=== PATIENT | male | born 1995 | race Caucasian/White ===

== ENCOUNTER 2018-11-21 14:10 | Emergency (ER) | payer OTHER ==
--- NOTE | 2018-11-21 15:59 | EDPHY ---
HPI/HX/ROS/PE/MDM Narrative: CHIEF COMPLAINT: Fever, sore throat, neck pain HISTORY OF PRESENT ILLNESS: The patient is a 23 y/o male complaining of a fever, sore throat, and an intermittent headache. Starting last night he developed a mild sore throat. Sore throat was worse this am, with increased pain on right side. Has fullness and swelling along right side of neck, some discomfort with swallowing. No breathing difficulty. He also had a subjective fever, but did take a temperature reading. He took elderberry for his symptoms, but denies taking Tylenol or Ibuprofen. As his symptoms did not improve he decided to present to the emergency department. No ill contacts, no influenza vaccination this year. No chest pain, shortness of breath, palpitations, vomiting, diarrhea, urinary complaints, lightheadedness. REVIEW OF SYSTEMS: Aside from elements discussed in the HPI, a comprehensive 10-point review of systems was reviewed and is negative. PAST MEDICAL HISTORY: Denies SOCIAL HISTORY: Friend at bedside, lives in [place], student at , originally from [facility] VITAL SIGNS: Reviewed by me GENERAL: Well-developed, well-nourished, resting comfortably in no respiratory distress. No drooling. HEENT: Atraumatic. Eyes: No icterus, no injection. PERRL. Mouth: moist mucous membranes. Right tonsillar swelling and erythema with mild exudates, no submental swelling. No airway compromise, tonsils not touching. Neck: firm swelling and fullness of the right neck from post-auricular area and down the lateral aspect till about mid neck. No fluctuance. Neck is supple, no meningismus. LUNGS: Clear to auscultation bilaterally, no wheezes, rhonchi or rales. CARDIAC: Regular rate and rhythm, no rubs, murmurs or gallops. ABDOMEN: Soft, nontender, nondistended, bowel sounds normal. BACK: No CVA tenderness. EXTREMITIES: No trauma. No edema. Range of motion is normal throughout. NEURO: Alert and oriented, grossly nonfocal. SKIN: Warm and dry, no rash. PSYCHIATRIC: Normal mentation, no agitation. Portions of this note were transcribed by a medical massage therapist. I personally performed a history, physical exam, medical decision making, and confirmed accuracy of information the transcribed note. ED Course: The patient is a 23 y/o male presenting with a worsening sore throat, low grade fever and an intermittent headache. On exam he has right tonsillar swelling and erythema with mild exudates, as well as firm swelling and fullness of the right side of his neck from post auricular area to mid neck. Labs and CT soft tissue neck with IV contrast ordered; 1gm PO Tylenol, 600mg PO Motrin, and 1L IV NS administered. 1758: I spoke with the radiologist who reports that the patient has a right parapharyngeal phlegmon measuring 20 x 12 x 30. There are no signs of an abscess. 1814: I consulted with Dr. Casper, ENT, regarding this patient. She will see him in the office on Friday. I have prescribed him Augmentin and he will receive a dose of Unasyn prior to discharge. 1815: Reassessed patient and discussed imaging and laboratory findings. He is comfortable with plan for prescriptions and follow up. Return precautions provided; patient is comfortable with this plan. MDM: Diff dx considered included but not limited to abscess, airway compromise, strep throat, tonsillitis, tonsillar abscess, pharyngitis. - Data Points Imaging Results: Neck CT 11/21/18 17:15 Impression: 1. Heterogeneous enhancement pattern right palatine tonsil region right parapharyngeal location possible underlying phlegmon but no definitive abscess. 2. Reactive lymph nodes within the mid to upper neck right side greater than left. Findings discussed with Deanne Hartman MD at 17:59 hour, 11/21/2018. Imaging: Discussed imaging studies w/ train caller Radiologist, I viewed and interpreted images myself Laboratory Results: Laboratory Results 11/21/18 16:50 11/21/18 16:50 Medications Given: Discontinued Medications Acetaminophen (Tylenol) 1,000 mg PO EDNOW ONE Stop: 11/21/18 16:08 Last Admin: 11/21/18 16:52 Dose: 1,000 mg Dexamethasone (Decadron Injection) 10 mg IVP EDNOW ONE Stop: 11/21/18 17:18 Last Admin: 11/21/18 17:37 Dose: 10 mg Sodium Chloride (Ns) 1,000 mls @ 0 mls/hr IV ONCE ONE; Wide Open PRN Reason: Protocol Stop: 11/21/18 16:08 Last Admin: 11/21/18 16:52 Dose: 1,000 mls Ampicillin Sodium/Sulbactam (Sodium 3 gm/ Sodium Chloride) 100 mls @ 200 mls/ hr IV EDNOW ONE PRN Reason: Protocol Stop: 11/21/18 18:44 Last Admin: 11/21/18 18:40 Dose: 100 mls Ibuprofen (Motrin) 600 mg PO EDNOW ONE Stop: 11/21/18 16:08 Last Admin: 11/21/18 16:52 Dose: 600 mg Point of Care Test Results: Chemistry 11/21/18 17:00 POC Sodium 139 mEq/L mEq/L (135-145) POC Potassium 3.5 mEq/L mEq/L (3.3-5.0) POC Chloride 102 mEq/L mEq/L (97-110) POC BUN 10 mg/dL mg/dL (7-23) POC Creatinine 0.8 mg/dL mg/dL (0.7-1.3) POC Glucose 99 mg/dL mg/dL (70-100) ISTAT H&H 11/21/18 17:00 POC Hgb 14.6 gm/dL gm/dL (13.7-17.5) POC Hct 43 % % (40-51) General Time Seen by Provider: 11/21/18 15:45 Initial Vital Signs: Initial Vital Signs Temperature (C) 37.9 C 11/21/18 14:33 Heart Rate 103 H 11/21/18 14:33 Respiratory Rate 18 11/21/18 14:33 Blood Pressure 92/62 L 11/21/18 14:33 O2 Sat (%) 94 11/21/18 14:33 O2 Delivery Mode Room Air Allergies/Adverse Reactions: No Known Allergies Allergy (Unverified 11/21/18 17:16) Home Medications: Medication Instructions Recorded Amoxicillin/Clavulanate Pot 875 mg PO BID #14 tab 11/21/18 [Augmentin 875 MG TAB (*)] Clindamycin HCl [Clindamycin] 300 mg PO TID #30 cap 11/21/18 Departure - Departure Disposition: Home, Routine, Self-Care Clinical Impression: Phlegmon, Tonsillitis, Adenopathy Condition: Good Instructions: Tonsillitis (ED) Additional Instructions: Take Augmentin as prescribed. I recommend Ibuprofen (Motrin, Advil) or Naproxen Sodium (Aleve) for pain and anti-inflammatory effects. You may take either one, but do not take both. Your dose is: Ibuprofen 600 mg every 6-8 hours with food. OR Naproxen Sodium (Aleve) 220 mg every 12 hours. You can also take Tylenol as directed for pain. Drink plenty of fluids. Follow up with ENT on Friday. Return to the emergency department if your symptoms become worse or you can't swallow. Referrals: Debora Casper MD [Medical Doctor] - As per Instructions Prescriptions: Amoxicillin/Clavulanate Pot [Augmentin 875 MG TAB (*)] 875 mg PO BID #14 tab Clindamycin HCl [Clindamycin] 300 mg PO TID #30 cap Report Scribed for: Daenne Hartman Report Scribed by: Jeanne Dennis Date of Report: 11/21/18 Time of Report: 15:57
[2018-11-21] MEDS ORDERED: IBUPROFEN 600 MG TAB PO ONE (16:07)
[2018-11-21] MEDS ORDERED: ACETAMINOPHEN 500 MG TAB PO ONE (16:07)
[2018-11-21] MEDS ORDERED: NS 1,000 ML IV ONE (16:07)
[2018-11-21 17:06] LABS: PLATELET COUNT 217 10^3/uL (150-400)
[2018-11-21] MEDS ORDERED: DEXAMETHASONE 10 MG/ML VIAL IVP ONE (17:17)
[2018-11-21] MEDS ORDERED: IOPAMIDOL (ISOVUE 370) 100 ML BTL IV ONE (17:18)
[2018-11-21] MEDS ORDERED: CLINDAMYCIN 600 MG/DEXTROSE 50 ML IV ONE (18:03)
[2018-11-21] MEDS ORDERED: AMPICILLIN/SULBACTAM 3 GM in NS 100 ML IV ONE (18:15)
[2018-11-21 18:21] VITALS: BP 104/46
== END 2018-11-21 18:54 | disposition home or self-care (01) ==
DX: J03.90 Acute tonsillitis, unspecified (principal); R59.9 Enlarged lymph nodes, unspecified; E86.9 Volume depletion, unspecified
CPT/HCPCS: 82435-PO; 82565-PO; 82947-PO; 84132-PO; 84295-PO; 84520-PO; 85014-ER; 96374; J0295; J1100; Q9967